=== PATIENT | female | born 1990 | race Caucasian/White ===

== ENCOUNTER 2018-08-22 06:25 | Inpatient (IN) | payer MEDICAID ==
[2018-08-22] MEDS ORDERED: CARBOPROST 250 MCG INJ IM ×2 (07:00→15:30)
[2018-08-22] MEDS ORDERED: OXYTOCIN 30 UNITS/LR 500 ML IV ×3 (07:00→15:30)
[2018-08-22] MEDS ORDERED: METHYLERGONOVINE 0.2 MG INJ IM ×2 (07:00→15:30)
[2018-08-22] MEDS ORDERED: CEFAZOLIN 2 GM/50 ML (PMX) 50 ML IVPB (07:00)
[2018-08-22] MEDS ORDERED: MISOPROSTOL 200 MCG TAB PR ×2 (07:00→15:30)
[2018-08-22] MEDS: LACTATED RINGER'S 1,000 ML IV ×2 (07:04→17:44)
[2018-08-22 07:05] LABS: ADD MAN DIFF? NO
[2018-08-22 07:09] LABS: WHITE BLOOD COUNT 11.3 10^3/ul (4.8-10.8)
[2018-08-22 07:09] LABS: BASOPHILS % 0.1 % (0.0-2.0); EOSINOPHILS % 0.4 % (0.0-7.0); HEMATOCRIT 39.7 % (37.0-47.0); HEMOGLOBIN 13.3 g/dl (12.0-16.0); LYMPHOCYTES # 1.1 10^3/ul (0.8-2.9); MEAN CORPUSCULAR HEMOGLOBIN 29.4 pg (29.0-33.0); MEAN CORPUSCULAR HGB CONC 33.5 g/dl (32.0-37.0); MEAN CORPUSCULAR VOLUME 87.6 fl (82.0-101.0); MEAN PLATELET VOLUME 11.5 fl (7.4-10.4); MONOCYTE # 0.4 10^3/ul (0.3-0.9); MONOCYTES % 3.2 % (0.0-11.0); NEUTROPHIL # 9.7 10^3/ul (1.6-7.5); NEUTROPHILS % 85.9 % (39.0-77.0); PLATELET COUNT 219 10^3/UL (140-415); RED BLOOD COUNT 4.53 10^6/ul (4.20-5.40); RED CELL DISTRIBUTION WIDTH 13.2 % (11.5-14.5)
[2018-08-22 07:27] LABS: GLUCOSE 108 mg/dl (70-220)
[2018-08-22 07:30] LABS: PARTIAL THROMBOPLASTIN TIME 23.5 Sec (23.0-35.0); PROTIME 11.2 Sec (11.9-14.9); PT RATIO 0.9
[2018-08-22 07:59] LABS: HEPATITIS B SURFACE ANTIGEN NEGATIVE (NEGATIVE)
[2018-08-22] MEDS ORDERED: PHENYLephrine (100 MCG/ML) 10ML SYG (09:28)
[2018-08-22] MEDS ORDERED: FENTAnyl 50 MCG/ML VIAL (09:28)
[2018-08-22] MEDS ORDERED: morphine SULFATE/PF (10 MG/10 ML) INJ (09:28)
[2018-08-22] MEDS ORDERED: DEXAMETHASONE 4 MG/ML 1 ML INJ (09:38)
[2018-08-22] MEDS ORDERED: ONDANSETRON 4 MG INJ (09:40)
[2018-08-22] MEDS ORDERED: ONDANSETRON 4 MG INJ IV (11:00)
[2018-08-22] MEDS ORDERED: ZOLPIDEM 5 MG TAB PO ×2 (11:00→15:30)
[2018-08-22] MEDS ORDERED: DIPHENHYDRAMINE 50 MG INJ IV ×2 (11:00→15:30)
[2018-08-22] MEDS ORDERED: NALOXONE (0.4 MG/ML) INJ IV (11:00)
[2018-08-22] MEDS ORDERED: HYDROmorphONE 0.5 MG/0.5 ML SYG IV ×2 (11:00)
[2018-08-22] MEDS: OXYTOCIN 30 UNITS/LR 500 ML IV (12:25)
[2018-08-22 15:11] LABS: RAPID PLASMA REAGIN NONREACTIVE (NR)
[2018-08-22] MEDS ORDERED: OXYCODONE/ACETAMINOPHEN (5/325) TAB PO ×2 (15:30)
[2018-08-22] MEDS: LANOLIN HPA 1 PKT TOP (17:44)
[2018-08-22] MEDS: ONDANSETRON 4 MG INJ IV (17:44)
[2018-08-22] MEDS: SENNA/DOCUSATE NA (8.6MG/50MG) TAB PO (21:51)
[2018-08-22] MEDS: KETOROLAC 30 MG INJ IV (23:43)
[2018-08-23] MEDS: LACTATED RINGER'S 1,000 ML IV ×3 (01:36→21:16)
[2018-08-23 08:30] LABS: HEMATOCRIT 31.4 % (37.0-47.0); HEMOGLOBIN 10.3 g/dl (12.0-16.0); MEAN CORPUSCULAR HGB CONC 32.8 g/dl (32.0-37.0); MEAN CORPUSCULAR VOLUME 88.5 fl (82.0-101.0); PLATELET COUNT 157 10^3/UL (140-415); RED BLOOD COUNT 3.55 10^6/ul (4.20-5.40); RED CELL DISTRIBUTION WIDTH 13.3 % (11.5-14.5)
[2018-08-23 08:30] LABS: WHITE BLOOD COUNT 7.7 10^3/ul (4.8-10.8)
[2018-08-23 08:35] LABS: POSITIVE DIFF @See below
[2018-08-23 08:36] LABS: ADD MAN DIFF? YES
[2018-08-23] MEDS: SENNA/DOCUSATE NA (8.6MG/50MG) TAB PO ×2 (08:40→21:00)
[2018-08-23] MEDS: KETOROLAC 30 MG INJ IV (08:41)
[2018-08-23 09:37] LABS: ANISOCYTOSIS 1+ (0-0); BAND NEUTROPHILS #M 1.9 10^3/ul (0.0-0.6); BAND NEUTROPHILS % (M) 25 % (0-4); LYMPHOCYTES #M 2.2 10^3/ul (0.8-2.9); LYMPHOCYTES % (M) 29 % (15-51); MONOCYTE #M 0.1 10^3/ul (0.3-0.9); MONOCYTES % (M) 2 % (0-11); PLATELET ESTIMATE NORMAL; SEG NEUT #M 3.5 10^3/ul (1.6-7.5); SEGMENTED NEUTROPHILS (M) % 44 % (39-77); SMUDGE%M 2 % (0-0)
[2018-08-23] MEDS: IBUPROFEN 600 MG TAB PO ×3 (12:00→23:30)
[2018-08-24] MEDS: LACTATED RINGER'S 1,000 ML IV ×3 (01:00→22:30)
[2018-08-24] MEDS: IBUPROFEN 600 MG TAB PO ×4 (05:49→23:26)
[2018-08-24] MEDS: SENNA/DOCUSATE NA (8.6MG/50MG) TAB PO ×2 (09:00→21:05)
[2018-08-25] MEDS: LACTATED RINGER'S 1,000 ML IV (01:00)
[2018-08-25] MEDS: IBUPROFEN 600 MG TAB PO ×2 (05:37→11:32)
[2018-08-25] MEDS: SENNA/DOCUSATE NA (8.6MG/50MG) TAB PO (08:40)
[2018-08-25] MEDS: DIPHTH/TET/ACEL PERTUSS (ADULT) 0.5 ML VIAL IM* (11:34)
== END 2018-08-25 13:22 | disposition home or self-care (01) | DRG 788 ==
LOC: L-D 06:25 → PP1 15:09
PROVIDERS: Obstetrics & Gynecology
PROC: 10D00Z1 Extraction of Products of Conception, Low, Open Approach (ICD-10-PCS; principal; 2018-08-22)
DX: O32.1XX0 Maternal care for breech presentation, not applicable or unspecified (principal); O34.211 Maternal care for low transverse scar from previous cesarean delivery; Z3A.39 39 weeks gestation of pregnancy; Z37.0 Single live birth; O24.419 Gestational diabetes mellitus in pregnancy, unspecified control
CPT/HCPCS: 76815; 82947; 82962; 85025; 85610; 85730; 86592; 86850; 86900; 86901; 87340; 90715